=== PATIENT | male | born 1990 | race Caucasian/White ===

== ENCOUNTER 2017-01-02 00:40 | Emergency (ER) | payer OTHER ==
--- NOTE | 2017-01-02 00:58 | Emergency Department Record ---
History of Present Illness - General Chief Complaint: Abdominal Pain Stated Complaint: ABDOMINAL PAIN Time Seen by Provider: 01/02/17 00:53 Source: Patient Mode of Arrival: Ambulatory Limitations: No limitations - History of Present Illness Initial Comments: 26 yo male presents to ED with a CC of epigastric pain that has been present since last night, constant. Patient denies fevers, chills, nausea, or vomiting symptoms. Patient denies change in stools. Patient denies any recent food changes, denies health problems at his baseline. Patient denies previous abdominal surgeries. MD Complaint: Abdominal pain Onset/Timin -: Days(s) Location: Periumbilical Radiation: None Migration to: No migration Severity: Mild Quality: Fullness, Other Consistency: Constant Improves With: Nothing Worsens With: Nothing Associated Symptoms: Denies other symptoms - Related Data Previous Rx's Medication Instructions Recorded Famotidine [Pepcid] 40 mg PO DAILY #20 tablet 01/02/17 Hyoscyamine Sulfate [Levsin-Sl] 0.25 mg SL Q6H PRN #15 tab.subl 01/02/17 Allergies Allergy/AdvReac Type Severity Reaction Status Date / Time Sulfa (Sulfonamide Allergy HIVES Verified 01/02/17 00:49 Antibiotics) Travel Screening - Travel/Exposure Within Last 30 Days Have you traveled within the last 30 days?: No - Travel/Exposure Within Last Year Have you traveled outside the [place] in the last year?: No - Additonal Travel Details Have you been exposed to anyone with a communicable illness?: No - Travel Symptoms Symptom Screening: None Review of Systems Constitutional: Denies: Chills, Fever, Malaise, Night sweats Eyes: Denies: Eye discharge, Eye pain ENT: Denies: Congestion, Ear pain, Epistaxis Respiratory: Denies: Cough, Dyspnea Cardiovascular: Denies: Chest pain, Dyspnea on exertion Endocrine: Denies: Fatigue, Heat or cold intolerance Gastrointestinal: Reports: Abdominal pain. Denies: Nausea, Vomiting Genitourinary: Denies: Incontinence, Retention, Testicular pain Musculoskeletal: Denies: Arthralgia, Back pain, Gout, Joint swelling Skin: Denies: Bruising, Change in color Neurological: Denies: Abnormal gait, Confusion, Headache, Seizure Psychiatric: Denies: Anxiety Hematological/Lymphatic: Denies: Anemia, Blood Clots Past Medical History - SOCIAL HISTORY Smoking Status: Never smoker Alcohol Use: None Drug Use: None - RESPIRATORY Hx Respiratory Disorders: No - CARDIOVASCULAR Hx Cardio Disorders: No - NEURO Hx Neuro Disorders: No - GI Hx GI Disorders: No - Hx Genitourinary Disorders: No - ENDOCRINE Hx Endocrine Disorders: No - MUSCULOSKELETAL Hx Musculoskeletal Disorders: No - PSYCH Hx Psych Problems: No - HEMATOLOGY/ONCOLOGY Hx Hematology/Oncology Disorders: No Family Medical History Any Significant Family History?: No Physical Exam - General General Appearance: Alert, Oriented x3, Cooperative, Moderate distress Limitations: No limitations - Head Head exam: Atraumatic, Normocephalic, Normal inspection Head exam detail: negative: Abrasion, Contusion, Garcia's sign, General tenderness, Hematoma, Laceration - Eye Eye exam: Normal appearance. negative: Conjunctival injection, Periorbital swelling, Periorbital tenderness, Scleral icterus - ENT Ear exam: negative: Auricular hematoma, Auricular trauma Nasal Exam: negative: Active bleeding, Discharge, Dried blood, Foreign body Mouth exam: negative: Drooling, Laceration, Muffled voice, Tongue elevation - Neck Neck exam: Normal inspection. negative: Meningismus, Tenderness - Respiratory Respiratory exam: Normal lung sounds bilaterally. negative: Rales, Respiratory distress, Rhonchi, Stridor - Cardiovascular Cardiovascular Exam: Regular rate, Normal rhythm, Normal heart sounds - GI/Abdominal GI/Abdominal exam: Soft, Tenderness, Other (TTP epigastric region, mild TTP RUQ , no rebound or guarding present). negative: Rebound, Rigid - Rectal Rectal exam: Deferred - exam: Deferred - Extremities Extremities exam: Normal inspection. negative: Calf tenderness, Pedal edema, Tenderness - Back Back exam: Denies: CVA tenderness (R), CVA tenderness (L) - Neurological Neurological exam: Alert, Normal gait, Oriented X3 - Psychiatric Psychiatric exam: Normal affect, Normal mood - Skin Skin exam: Normal color. negative: Abrasion Type of lesion: negative: abrasion Course Vital Signs 01/02/17 00:43 Temperature 98.6 F Pulse Rate 77 Respiratory 20 Rate Blood Pressure 131/83 Pulse Ox 99 - Reevaluation(s) Reevaluation #1: 01/02/17 01:39 Labs reviewed and are grossly unremarkable for an acute process. Reevaluation #2: 01/02/17 01:53 CT Abdomen and Pelvis: No acute process Patient reassessed and updated on all results, reports that his symptoms are greatly improved. Patient appears stable for discharge with symptomatic treatment for his abdominal pain with Levsin at home, and instructions to return for any worsening of his symptoms. Medical Decision Making - Lab Data Result diagrams: 01/02/17 01:10 01/02/17 01:10 Disposition Disposition: Discharge Clinical Impression: Abdominal pain Qualifiers: Abdominal location: epigastric Qualified Code(s): R10.13 - Epigastric pain Disposition: Home, Self-Care Condition: (2) Stable Instructions: Abdominal Pain (ED) Additional Instructions: Return to ED if your symptoms worsen or if you have any concerns. Levsin and Pepcid as directed. Follow-up with your family doctor in 1-3 days as directed. Prescriptions: Hyoscyamine Sulfate [Levsin-Sl] 0.25 mg SL Q6H PRN #15 tab.subl PRN Reason: Abdominal Pain Famotidine [Pepcid] 40 mg PO DAILY #20 tablet Forms: Patient Portal Access Time of Disposition: :
[2017-01-02] MEDS: HYOSCYAMINE SULFATE ODT 0.125 MG TAB.SUBL SL ONE (01:09)
[2017-01-02] MEDS: ONDANSETRON HCL IV 4 MG/2 ML VIAL IVP ONE (01:10)
[2017-01-02] MEDS: 0.9 % SODIUM CHLORIDE 1000ML 1,000 ML IV SCH (01:13)
[2017-01-02 01:18] LABS: BASO % 0.3 % (0-6); EOS % 3.3 % (0-6); GRAN % 59.6 % (47-80); HEMATOCRIT 45.4 % (42.0-52.0); HEMOGLOBIN 16.1 gm/dl (14.0-18.0); LYMPH % 30.2 % (16-45); MEAN CELL VOLUME 85.2 fl (81-97); MEAN CORPUSCULAR HEMOGLOBIN 30.2 pg (27-33); MEAN CORPUSCULAR HGB CONC 35.5 g/dl (32-36); MONO % 6.6 % (0-9); PLATELET COUNT 298 K/uL (130-400); RED BLOOD COUNT 5.33 M/uL (4.40-5.70); RED CELL DISTRIBUTION WIDTH 12.5 % (11.5-14.5); URINE APPEARANCE CLEAR; URINE BILIRUBIN NEGATIVE (NEGATIVE); URINE BLOOD NEGATIVE (NEGATIVE); URINE COLOR YELLOW; URINE GLUCOSE (UA) NEGATIVE (NEGATIVE); URINE KETONE NEGATIVE (NEGATIVE); URINE LEUKOCYTE ESTERASE NEGATIVE (NEGATIVE); URINE NITRITE NEGATIVE (NEGATIVE); URINE PROTEIN NEGATIVE (NEGATIVE); URINE UROBILINOGEN 0.2 E.U./dL (0.20 - 1.00); WHITE BLOOD COUNT W/O DIFF 7.3 K/uL (4.2-12.2)
[2017-01-02 01:28] LABS: ALB/GLOB RATIO 1.5 (1.1-1.8); ALBUMIN 4.8 gm/dL (3.5-5.0); ALKALINE PHOSPHATASE 87 U/L (38-126); ALT/SGPT 48 U/L (21-72); ANION GAP 14.1 (7-16); AST/SGOT 33 U/L (17-59); BILIRUBIN,TOTAL 0.49 mg/dL (0.2-1.3); BLOOD UREA NITROGEN 16 mg/dL (9-20); CARBON DIOXIDE 25.9 mmol/L (22-30); CREATININE 0.9 mg/dL (0.66-1.25); EST GLOMERULAR FILTRATION RATE > 60 ml/min; GLUCOSE,RANDOM 112 mg/dL (70-110); LIPASE 100 U/L (23-300); TOTAL PROTEIN 8.1 gm/dL (6.3-8.2)
== END 2017-01-02 02:05 | disposition home or self-care (01) ==
LOC: ER 00:40
DX: R10.13 Epigastric pain (principal)
CPT/HCPCS: 99284 ×2; 96374; 83690; 85025; 80053; 81003; 74177; Q9967; J1980; J2405; J7030